=== PATIENT | male | born 1975 | race African-American/Black ===

== ENCOUNTER 2024-01-10 02:18 | Emergency (ER) | payer MEDICAID ==
[~2024-01-10] VITALS: Ht 188 cm; Wt 105.7 kg
[2024-01-10 02:53] VITALS: TEMP 98
[2024-01-10] MEDS: ONDANSETRON HCL 4MG/2ML INJ IV ONE (04:38)
[2024-01-10] MEDS: MORPHINE SULFATE 4 MG/ML INJ (FOR IV/IM USE) IV ONE (04:38)
[2024-01-10 05:17] VITALS: O2SAT 99
[2024-01-10] MEDS: PROPOFOL 200MG/20ML VIAL IV ONE (05:22)
[2024-01-10] MEDS ORDERED: IBUP-2029 MT (06:09)
[2024-01-10 06:23] VITALS: BP 149/84; PULSE 98; RESP 16; O2SAT 97
== END 2024-01-10 06:23 | disposition home or self-care (01) ==
LOC: ER 02:18
DX: S43.085A Other dislocation of left shoulder joint, initial encounter (principal); F17.200 Nicotine dependence, unspecified, uncomplicated; X58.XXXA Exposure to other specified factors, initial encounter; Y93.89 Activity, other specified; Y92.89 Other specified places as the place of occurrence of the external cause; Y99.8 Other external cause status
CPT/HCPCS: 99285; 23650; 96374; 96375; 73030; 99152; J2405; J2704; J2270